=== PATIENT | male | born 1955 | race Caucasian/White ===

== ENCOUNTER 2020-07-12 06:00 | Emergency (ER) | payer MEDICARE ==
[~2020-07-12] VITALS: Ht 185.4 cm; Wt 108.9 kg
[2020-07-12] MEDS ORDERED: TENORMIN25 MG PO (06:13)
[2020-07-12] MEDS ORDERED: ANTACID325 MG PO (06:14)
[2020-07-12] MEDS ORDERED: PAXIL20 MG PO (06:14)
[2020-07-12 06:29] VITALS: BP 165/99
== END 2020-07-12 06:31 | disposition home or self-care (01) ==
LOC: EDBD 06:00 → M.ERS 06:00
DX: R59.0 Localized enlarged lymph nodes (principal); N62 Hypertrophy of breast; Z88.6 Allergy status to analgesic agent

== ENCOUNTER 2020-07-31 07:20 | Emergency (ER) | payer MEDICARE ==
[~2020-07-31] VITALS: Ht 188 cm; Wt 99.8 kg
[~2020-07-31 07:20] MED LIST: ANTACID325 MG PO; PAXIL20 MG PO; TENORMIN25 MG PO
[2020-07-31 09:12] LABS: ABSOLUTE BASOPHILS 0.1 thou/uL (0.0-0.2); ABSOLUTE LYMPHOCYTES 1.9 thou/uL (0.8-5.3); ABSOLUTE MONOCYTES 0.6 thou/uL (0.0-1.2); ABSOLUTE NEUTROPHILS 6.5 thou/uL (1.6-8.1); BASOPHILS 0.6 %; EOSINOPHILS 0.2 %; HEMATOCRIT 36.4 % (42.0-52.0); HEMOGLOBIN 12.4 gm/dL (14.0-18.0); LYMPHOCYTES 20.8 %; MCV 91.3 fL (80.0-100.0); MONOCYTES 6.8 %; MPV 7.7 fl. (7.2-11.1); NUCLEATED RBCS 0 /100WBC; PLATELET COUNT* 268 thou/uL (150-400); POLYS 71.6 %; RBC 3.99 mil/uL (4.50-6.00); RDW-CV 14.5 % (10.5-14.5)
[2020-07-31 09:26] LABS: CALCIUM 8.8 mg/dL (8.5-10.1); CREATININE 1.1 mg/dL (0.6-1.3)
[2020-07-31 09:28] LABS: APTT 27.9 Seconds (25.0-31.3); INR 1.1
[2020-07-31 09:38] LABS: ALBUMIN 3.6 g/dL (3.4-5.0); CK-MB MASS 4.4 ng/mL (<0.5-3.6); TOTAL BILIRUBIN 0.7 mg/dL (<0.1-1.0)
[2020-07-31 10:03] VITALS: BP 117/60
--- NOTE | 2020-07-31 11:36 | EKG ---
[place] [address] ELECTROCARDIOGRAM REPORT Name: HERIBERTO HULL Room: [facility]#: [id number] Admission: 07/31/20 Attend Phys: Discharge: 07/31/20 Date of : 57 Date of Service: 07/31/20 09 Report #: [id number] THIS REPORT FOR: //name// [facility] ED Test Date: 2020-07-31 Test Time: 09:00:14 Pat Name: HERIBERTO HULL Department: Room: Gender: [employer]: : 1955 Requested By: Juan Fonseca Order Number: [id number] MD: Heriberto Alegre Measurements Intervals [place] Rate: 88 P: 74 TX: 192 QRS: 42 QRSD: 98 T: 49 QT: 364 QTc: 441 Interpretive Statements Sinus rhythm RSR' in V1 or V2, right VCD or RVH No previous ECG available for comparison Electronically Signed On 07-31-2020 11:36:41 REFLESHER by Heriberto Alegre [email or web address] <ELECTRONICALLY SIGNED> By: Heriberto Alegre MD, [facility] 07/31/20 1136 9 09 Heriberto Alegre MD, [facility] /EPI
[2020-07-31] MEDS ORDERED: XANAX 0.5 MG0.5 MG PO (14:38)
== END 2020-07-31 10:03 | disposition home or self-care (01) ==
LOC: M.ERS 07:20
PROVIDERS: Family Medicine
DX: F41.0 Panic disorder [episodic paroxysmal anxiety] (principal); F17.210 Nicotine dependence, cigarettes, uncomplicated; Z88.6 Allergy status to analgesic agent

== ENCOUNTER 2020-07-31 12:16 | Emergency (ER) | payer MEDICARE ==
[~2020-07-31] VITALS: Ht 188 cm; Wt 108.9 kg
[2020-07-31] MEDS ORDERED: XANAX 0.5 MG0.5 MG PO (14:38)
[2020-07-31 14:50] VITALS: BP 147/87
== END 2020-07-31 14:51 | disposition home or self-care (01) ==
LOC: M.ERS 12:16
DX: F41.0 Panic disorder [episodic paroxysmal anxiety] (principal); Z88.6 Allergy status to analgesic agent